=== PATIENT | female | born 1955 | race Hispanic/Latino ===

== ENCOUNTER 2016-12-21 10:48 | Emergency (ER) | payer MEDICAID ==
[2016-12-21] MEDS ORDERED: NACL 0.9% 1000 ML 1,000 ML IV ONE (10:59)
[2016-12-21 11:29] LABS: Hematocrit 49.1 % (30.3-42.9); Hemoglobin 16.2 gm/dl (10.1-14.3); Mean Corpuscular HGB Conc 33 % (30-34); Mean Corpuscular Hemoglobin 32 pg (28-32); Mean Corpuscular Volume 98 fl (79-97); Platelet Count 409 K/mm3 (140-440); Red Blood Count 5.02 M/mm3 (3.65-5.03); Red Cell Distribution Width 12.9 % (13.2-15.2)
[2016-12-21 11:34] LABS: White Blood Count 22.2 K/mm3 (4.5-11.0)
[2016-12-21 11:40] LABS: INR 0.88 (0.87-1.13); Partial Thromboplastin Time 27.2 Sec. (24.2-36.6)
[2016-12-21 11:46] LABS: Alanine Aminotransferase 23 units/L (7-56); Albumin 4.7 g/dL (3.9-5); Albumin/Globulin Ratio 1.6 %; Anion Gap 20 mmol/L; BUN/Creatinine Ratio 21.66; Blood Urea Nitrogen 13 mg/dL (7-17); Calcium 10.1 mg/dL (8.4-10.2); Carbon Dioxide 27 mmol/L (22-30); Chloride 99.7 mmol/L (98-107); Glucose 124 mg/dL (65-100); Lipase 26 units/L (13-60); Potassium 4.1 mmol/L (3.6-5.0); Sodium 143 mmol/L (137-145); Total Protein 7.7 g/dL (6.3-8.2)
[2016-12-21 12:37] LABS: Alkaline Phosphatase 60 units/L (35-129)
[2016-12-21 12:42] LABS: Anisocytosis 1+; Basophils % (Manual) 0 % (0.0-1.8); Blastocytes % (Manual) 0 %; Diff Status Complete; Eosinophils % (Manual) 0 % (0.0-4.3); Platelet Estimate Consistent w Auto; Total Cells Counted Percent 5.5
[2016-12-21] MEDS ORDERED: ZOFRAN IV ONE (14:07)
[2016-12-21 14:42] LABS: Bilirubin,Urine NEG (Negative); Blood,Urine MOD (Negative); Ketones,Urine NEG (Negative); Leukocyte Esterase,Urine NEG (Negative); Mucus,Urine FEW /HPF; Nitrite,Urine NEG (Negative); Protein,Urine <15 mg/dL mg/dL (Negative); Urobilinogen,Urine < 2.0 mg/dL (<2.0); WBC,Urine < 1.0 /HPF (0.0-6.0)
--- NOTE | 2016-12-21 14:46 | Emergency Department Report ---
ED N/V/D HPI - General Chief complaint: GI Bleed Stated complaint: RECTAL BLEEDING Time Seen by Provider: 12/21/16 13:14 Source: patient Mode of arrival: Ambulatory Limitations: No Limitations - History of Present Illness MD complaint: nausea, vomiting, diarrhea, abdominal pain -: Gradual Description of Vomiting: bilious Description of Diarrhea: water Associated Abdominal Pain: No Severity: mild Consistency: intermittent Improves with: none Worsens with: none Associated Symptoms: denies: myalgias, chest pain, cough, diaphoresis, fever/ chills, loss of appetite, malaise, rash, dysuria, shortness of breath, syncope, weakness - Related Data Home Medications Medication Instructions Recorded Confirmed Last Taken Aspirin [Aspirin TAB] 325 mg PO Q48H 12/21/16 12/21/16 Unknown Ca/D3/Mag/Zinc/[place]/Mgbor 1 each PO DAILY 12/21/16 12/21/16 Unknown [Caltrate 600+D3+Min Chew Tab] Clopidogrel Bisulfate [Plavix] 75 mg PO ONCE 12/21/16 12/21/16 Unknown Cyanocobalamin (Vitamin B-12) 1,000 mcg SL QMONTH 12/21/16 12/21/16 Unknown [B-12] Ipratropium/Albuterol Sulfate 4 gm IH PRN PRN 12/21/16 12/21/16 Unknown [Combivent Respimat Inhal [place]] Pantoprazole [Protonix TAB] 40 mg PO ONCE 12/21/16 12/21/16 Unknown Pravastatin (Nf) [Pravachol] 40 mg PO DAILY 12/21/16 12/21/16 Unknown Tramadol HCl 50 mg PO BID 12/21/16 12/21/16 Unknown predniSONE 10 mg (6-Day Pack, 21 10 mg PO PRN PRN 12/21/16 12/21/16 Unknown Tabs) Allergies Allergy/AdvReac Type Severity Reaction Status Date / Time morphine AdvReac Mild SWEATING,NAUSEA,HOT Verified 12/21/16 10:52 FLASHES ED Review of Systems ROS: Stated complaint: RECTAL BLEEDING Other details as noted in HPI Comment: All other systems reviewed and negative ED Past Medical Hx - Past Medical History Hx Hypertension: Yes Additional medical history: BLOOD CLOTS IN LUNGS /MITRAL VALVE PROLAPSE/ PAD OSTESOPORESIS / FIBROMYAGILAI, CVA ACID REFLUX - Surgical History Additional Surgical History: TONSIL STENTS / HYSTO - Social History Smoking Status: Current Every Day Smoker Substance Use Type: None - Medications Home Medications: Home Medications Medication Instructions Recorded Confirmed Last Taken Type Aspirin [Aspirin TAB] 325 mg PO Q48H 12/21/16 12/21/16 Unknown History Ca/D3/Mag/Zinc/[place]/Mgbor 1 each PO DAILY 12/21/16 12/21/16 Unknown History [Caltrate 600+D3+Min Chew Tab] Clopidogrel Bisulfate [Plavix] 75 mg PO ONCE 12/21/16 12/21/16 Unknown History Cyanocobalamin (Vitamin B-12) 1,000 mcg SL QMONTH 12/21/16 12/21/16 Unknown History [B-12] Ipratropium/Albuterol Sulfate 4 gm IH PRN PRN 12/21/16 12/21/16 Unknown History [Combivent Respimat Inhal [place]] Pantoprazole [Protonix TAB] 40 mg PO ONCE 12/21/16 12/21/16 Unknown History Pravastatin (Nf) [Pravachol] 40 mg PO DAILY 12/21/16 12/21/16 Unknown History Tramadol HCl 50 mg PO BID 12/21/16 12/21/16 Unknown History predniSONE 10 mg (6-Day Pack, 21 10 mg PO PRN PRN 12/21/16 12/21/16 Unknown History Tabs) ED Physical Exam - General Limitations: No Limitations General appearance: alert, in no apparent distress - Head Head exam: Present: atraumatic, normocephalic - Eye Eye exam: Present: normal appearance - ENT ENT exam: Present: mucous membranes moist - Neck Neck exam: Present: normal inspection - Respiratory Respiratory exam: Present: normal lung sounds bilaterally. Absent: respiratory distress - Cardiovascular Cardiovascular Exam: Present: regular rate, normal rhythm. Absent: systolic murmur, diastolic murmur, rubs, gallop - GI/Abdominal GI/Abdominal exam: Present: soft, normal bowel sounds - Rectal Rectal exam: Present: normal inspection, normal rectal tone, heme (-) stool, hemorrhoids - Extremities Exam Extremities exam: Present: normal inspection - Back Exam Back exam: Present: normal inspection - Neurological Exam Neurological exam: Present: alert, oriented X3 - Psychiatric Psychiatric exam: Present: normal affect, normal mood - Skin Skin exam: Present: warm, dry, intact, normal color. Absent: rash ED Course Vital Signs 12/21/16 10:52 Temperature 97.6 F Pulse Rate 107 H Blood Pressure 172/108 O2 Sat by Pulse 98 Oximetry ED Medical Decision Making - Lab Data Result diagrams: 12/21/16 11:06 12/21/16 11:06 - EKG Data -: EKG Interpreted by Me EKG shows normal: sinus rhythm Rate: normal - EKG Data When compared to previous EKG there are: no significant change - Radiology Data Radiology results: report reviewed - Medical Decision Making The patient will well here in the emergency room she already been tolerating by mouth no active bleeding at this point hemoglobin of 16 in a him a hematocrit of 45 she's got a significant white blood cell count of 22,000 which at this point is unexplained I'm not highly concerned about sepsis or or infection at this point he will need to be follow-up in the next 48 hours she is not tachycardic she is not hypotensive she's awake and alert with discussed all this THE RESULTS WITH HER AND I WANTED TO REPEAT AN UT 3-4 HOURS LATER TO MAKE SURE THAT Y BLOOD CELL COUNT WAS GOING DOWN BUT SHE AND HER DAUGHTER IN A HURRY AND THEY WANT TO GO HOME SO WE WILL DISCHARGE THE PATIENT IN THAT IT IS ANY PROBLEMS IN MYOGLOBIN Critical care attestation.: If time is entered above; I have spent that time in minutes in the direct care of this critically ill patient, excluding procedure time. ED Disposition Clinical Impression: Acute hemorrhoid, Bleeding external hemorrhoids Disposition: DISCHARGED TO HOME OR SELFCARE Is pt being admited?: No Does the pt Need Aspirin: No Condition: Good Referrals: PRIMARY MD CHAVA [Primary Care Provider] - 3-5 Days TAMMY GARAY MD [Staff Physician] - 3-5 Days Forms: Accompanied Note Time of Disposition: 16:52
[2016-12-21 17:44] VITALS: BP 133/74
== END 2016-12-21 17:30 | disposition home or self-care (01) ==
LOC: ED 10:48
DX: K64.4 Residual hemorrhoidal skin tags (principal); I10 Essential (primary) hypertension; F17.200 Nicotine dependence, unspecified, uncomplicated; Z88.6 Allergy status to analgesic agent; Z79.82 Long term (current) use of aspirin
CPT/HCPCS: 36415; 80053; 81001; 83690; 85007; 85025; 85610; 85730; 86850; 86900; 86901; 93005; 93010; 96361; 96374; 99284; J2405; J7030

== ENCOUNTER 2017-01-02 08:15 | Outpatient (CLI) | payer MEDICAID ==
[2017-01-02] MEDS ORDERED: NACL ONE (08:37)
--- NOTE | 2017-01-02 15:02 | Cat Scan Report ---
CTA HEAD INDICATION: Occlusion and stenosis of bilateral carotid arteries. COMPARISON: None similar. FINDINGS: CTA of the brain performed following IV contrast. Multiplanar reconstructions, including post processing angiographic reformations obtained. Patent, normal vertebrobasilar system. Patent [place] as well. Mild ICA atherosclerotic calcifications. No hemodynamically significant stenosis or aneurysm identified. Normal imaged intracranial appearance. Rightward nasal septal bowing. Clear imaged paranasal sinuses and mastoid air cells. Extensive radiopaque dental material creates streak artifact. CONCLUSION: Normal CTA of the head with few other findings, as described. Thank you for the opportunity to participate in this patient's care.
--- NOTE | 2017-01-02 15:02 | Cat Scan Report ---
CTA NECK INDICATION: Occlusion and stenosis of bilateral carotid arteries. COMPARISON: None similar. FINDINGS: CTA neck performed utilizing IV contrast. Axial, sagittal, coronal and MIP reconstructions obtained. Patent aortic arch with atherosclerotic changes. A vascular space lymph node measures approximately 9 mm, axial series 2, image 7. Mild atherosclerotic changes/narrowing at the origin of the left common carotid artery may also be present as on axial image 22 versus motion artifact. Patent remainder aortic arch major arising branch vessels, including bilateral carotids and codominant vertebral arteries. Patent jugular veins. Left carotid bulb demonstrates minimal atherosclerotic calcifications and slight narrowing, not clinically significant and less than 50%. Remainder ICA also patent, though mid-to distal ICA tortuosity noted. Right carotid bulb also demonstrates mild atherosclerotic calcifications with slight stenosis, axial image 98, series 2, appearing less than 50%. Post-bulbar left proximal ICA dilatation/post carotid endarterectomy changes over approximately 2.5 cm vertical segment noted as on axial images 101-123 beyond which an approximately 1.8 cm segment of proximal to mid ICA as on axial images 124-134, series 2 demonstrates severe, approximately 90-95% stenosis. Further distal right ICA appears patent. C5-C6 disc narrowing. Left facet arthropathy at C3-C5 also noted. Mild diffuse emphysematous changes in the upper lobes, including biapical subpleural bullae and scarring. Normal size thyroid with approximately 4 mm hypodensity on the right. Radiopaque dental material. CONCLUSION: 1. Severe/critical, greater than 90% stenosis of the right proximal to mid ICA segment in this patient with right proximal ICA dilatation/post carotid endarterectomy changes noted, as described. 2. Other findings, including mild atherosclerotic changes, including mild stenosis versus artifact at the origin of the left common carotid artery possible, as detailed above. I phoned the above results to Dr. Graham, 2:45 PM, 01/02/2017. Thank you for the opportunity to participate in this patient's care.
== END 2017-01-02 08:16 | disposition home or self-care (01) ==
LOC: CT 08:15
PROVIDERS: ATTEND Surgery Vascular Surgery
DX: I65.23 Occlusion and stenosis of bilateral carotid arteries (principal); M12.88 Other specific arthropathies, not elsewhere classified, other specified site; I70.0 Atherosclerosis of aorta; Z98.890 Other specified postprocedural states
CPT/HCPCS: 70496; 70498; Q9967